=== PATIENT | female | born 1930 | race Caucasian/White ===

== ENCOUNTER 2017-06-19 18:10 | Inpatient (IN) | payer MEDICARE, BC ==
[~2017-06-19] VITALS: Ht 160 cm; Wt 34.9 kg
[~2017-06-19 18:10] MED LIST: ACET325T53 PO; ALBU1.257 NEB; AMIT10TA6 PO; ASPI81TA31 PO; BETA1TAB19 PO; DIGO125T PO; DILT300C57 PO; DOCU-270 PO; FLUO-120 PO; LATA2.5D2 EACHEYE; LORA-588 PO; MEGE20TA5 PO; PRED5SOL PO; SENN8.6C5 PO; [UNRECOGNIZED DRUG - CODE] PO
[2017-06-19] MEDS ORDERED: MIRT7.5T10 PO (18:42)
[2017-06-19] MEDS ORDERED: HYDR453.4 TP (18:42)
[2017-06-19] MEDS ORDERED: CHOL50004 PO (18:42)
[2017-06-19] MEDS ORDERED: DIPH-530 PO (18:42)
[2017-06-19] MEDS ORDERED: NYST15PO4 TP (18:42)
[2017-06-19] MEDS ORDERED: FURO-152 PO (18:45)
--- NOTE | 2017-06-19 18:50 | NUR ---
PIETER VALDEZ AT BEDSIDE FOR MSE.
[2017-06-19] MEDS ORDERED: IV NORMAL SALINE 500 ML BAG IV ONE (19:00)
[2017-06-19 19:28] LABS: BASOPHILS # (AUTO) 0.1 K/uL (0.0-8.0); BASOPHILS % (AUTO) 0.9 % (0.0-2.0); EOSINOPHILS # (AUTO) 0.1 K/uL (0.0-0.7); EOSINOPHILS % (AUTO) 0.9 % (0.0-7.0); HEMATOCRIT 42.1 % (31.2-41.9); HEMOGLOBIN 13.8 g/dL (10.9-14.3); LYMPHOCYTES # (AUTO) 0.8 K/uL (20.0-40.0); LYMPHOCYTES % (AUTO) 14.2 % (20.5-51.5); MEAN CORPUSCULAR HEMOGLOBIN 29.6 uug (24.7-32.8); MEAN CORPUSCULAR HGB CONC 33 g/dL (32.3-35.6); MEAN CORPUSCULAR VOLUME 90.3 fL (75.5-95.3); MONOCYTES # (AUTO) 0.4 K/uL (2.0-10.0); MONOCYTES % (AUTO) 7.5 % (0.0-11.0); NEUTROPHILS # (AUTO) 4.4 K/uL (1.8-8.9); NEUTROPHILS % (AUTO) 76.5 % (38.5-71.5); PLATELET COUNT (AUTO) 260 K/uL (179-408); RED BLOOD CELL COUNT(AUTO) 4.66 MIL/uL (3.63-4.92); WHITE BLOOD COUNT (AUTO) 5.8 K/uL (3.8-11.8)
[2017-06-19 19:34] LABS: CARBON DIOXIDE 32 mmol/L (21-32); CHLORIDE 101 mmol/L (98-107); CREATININE 0.8 mg/dL (0.6-1.3); GLUCOSE 89 mg/dL (74-106); POTASSIUM 4.3 mmol/L (3.5-5.1); UREA NITROGEN, BLOOD 14 mg/dL (7-18)
[2017-06-19 19:45] LABS: ALANINE AMINOTRANSFERASE 18 U/L (14-59); ALKALINE PHOSPHATASE 138 U/L (50-136); ASPARTATE AMINOTRANSFERASE 20 U/L (15-37); BILIRUBIN,DIRECT 0.1 mg/dL (0.0-0.2); BILIRUBIN,TOTAL 0.4 mg/dL (0.2-1.0); TOTAL PROTEIN, SERUM 7.6 g/dL (6.4-8.2)
--- NOTE | 2017-06-19 19:58 | NUR ---
Pt resting in a position of comfort w/ eyes closed. No signs of distress noted at this time.
--- NOTE | 2017-06-19 21:00 | NUR ---
Attempted to collect stool sample when changing patient, but sample was too small. Linens changed to provide comfort.
[2017-06-19] MEDS ORDERED: PIPERACILLIN SODIUM/TAZOBACTAM 3.375 G in IV DEXTROSE 5% 50 ML IV ONE (21:30)
[2017-06-19] MEDS ORDERED: PIPERACILLIN/TAZOBACTAM/D5W 50 ML IV ONE (21:50)
--- NOTE | 2017-06-19 22:14 | NUR ---
Pt appears aggitated. Pulling at chords for BP cuff/pulse ox/monitor and IV tubing. IV reinforced.
[2017-06-19 22:18] LABS: *BILIRUBIN,URIN NEGATIVE (NEGATIVE); *BLOOD, URINE Trace-intact (NEGATIVE); *CLARITY,URINE CLEAR (CLEAR); *COLOR,URINE STRAW (YELLOW); *KETONES,URINE NEGATIVE (NEGATIVE); *PROTEIN,URINE NEGATIVE (NEGATIVE); *UROBILINOGEN,URINE 0.2 E.U./dl (NORMAL); LEUKOCYTE ESTERASE ,URINE NEGATIVE (NEGATIVE); NITRITE, URINE NEGATIVE (NEGATIVE); UGLUCOSE NEGATIVE (NEGATIVE)
[2017-06-19 22:29] LABS: SQUAMOUS EPITHELIAL CELL,UR FEW /HPF (NONE SEEN); WBC,URINE 0-3 /HPF (0-3)
--- NOTE | 2017-06-19 23:02 | NUR ---
PT PULLED OUT IV IN RT AC. CATHETER INTACT. SCANT BLEEDING NOTED AT SITE. NOTIFIED
[2017-06-20] MEDS ORDERED: IV D5 1/2 NS 1000 ML 1,000 ML IV PRN (00:01)
--- NOTE | 2017-06-20 00:26 | NUR ---
REPORT GIVEN TO BEV LAMAS.
--- NOTE | 2017-06-20 00:50 | NUR ---
PT RECEIVED FROM ED, VIA [facility]. ORIENTED TO ROOM. A/OX1. ABLE TO MAKE NEEDS KNOWN. V/S STABLE. IN NO ACUTE DISTRESS. NO C/O PAIN AT THIS TIME. IV INTACT AND PATENT. ON RA, TOLERATING WELL. AFEBRILE. CONTACT PRECAUTIONS IN PLACE. HOB ELEVATED. SAFETY MEASURES IMPLEMENTED. BED ALARM SET. CALL LIGHT WITHIN REACH.
[2017-06-20 01:00] VITALS: BP 92/65
--- NOTE | 2017-06-20 01:00 | NUR ---
Pt. admitted to med surg, under care of Dr. Lane Belongs List completed
[2017-06-20] MEDS ORDERED: FLEET ENEMA 133 ML BOTTLE RC PRN (01:15)
[2017-06-20 05:23] VITALS: BP 115/66
[2017-06-20 05:35] LABS: BASOPHILS # (AUTO) 0.1 K/uL (0.0-8.0); BASOPHILS % (AUTO) 0.9 % (0.0-2.0); EOSINOPHILS # (AUTO) 0.1 K/uL (0.0-0.7); EOSINOPHILS % (AUTO) 1.8 % (0.0-7.0); HEMATOCRIT 41.5 % (31.2-41.9); HEMOGLOBIN 13.7 g/dL (10.9-14.3); LYMPHOCYTES # (AUTO) 1.2 K/uL (20.0-40.0); LYMPHOCYTES % (AUTO) 18.1 % (20.5-51.5); MEAN CORPUSCULAR HEMOGLOBIN 29.7 uug (24.7-32.8); MEAN CORPUSCULAR HGB CONC 33 g/dL (32.3-35.6); MEAN CORPUSCULAR VOLUME 90.3 fL (75.5-95.3); MONOCYTES # (AUTO) 0.6 K/uL (2.0-10.0); MONOCYTES % (AUTO) 9.8 % (0.0-11.0); NEUTROPHILS # (AUTO) 4.6 K/uL (1.8-8.9); NEUTROPHILS % (AUTO) 69.4 % (38.5-71.5); PLATELET COUNT (AUTO) 268 K/uL (179-408); RED BLOOD CELL COUNT(AUTO) 4.59 MIL/uL (3.63-4.92); WHITE BLOOD COUNT (AUTO) 6.6 K/uL (3.8-11.8)
[2017-06-20 05:45] LABS: CARBON DIOXIDE 29 mmol/L (21-32); CHLORIDE 104 mmol/L (98-107); CREATININE 0.9 mg/dL (0.6-1.3); GLUCOSE 92 mg/dL (74-106); POTASSIUM 3.8 mmol/L (3.5-5.1); UREA NITROGEN, BLOOD 10 mg/dL (7-18)
--- NOTE | 2017-06-20 06:20 | NUR ---
PT SLEPT INTERMITTENTLY THROUGHOUT SHIFT. ATTEMPTED MULTIPLE TIMES TO PULL IV. WRAPPED WITH VENUS BANDAGE FOR PREVENTION. IN STABLE CONDITION. ALL NEEDS ATTENDED. ISOLATION CONT TO BE IN PLACE. SAFETY MAINTAINED. CALL LIGHT WITHIN REACH.
[2017-06-20] MEDS ORDERED: HYDROCORTISONE 2.5% ONT. 28.35 GM TUBE TP PRN (07:30)
[2017-06-20] MEDS ORDERED: SENNOSIDES 1 TABLET PO PRN (07:30)
[2017-06-20] MEDS ORDERED: NYSTATIN POWDER 15 GM BOTTLE TP PRN (07:30)
[2017-06-20] MEDS ORDERED: predniSONE 5 MG/5 ML LIQ UDC PO PRN (07:30)
[2017-06-20] MEDS ORDERED: diphenhydrAMINE 25 MG/10 ML UDC PO PRN (07:30)
[2017-06-20] MEDS: FUROSEMIDE 20 MG TABLET PO SCH (08:52)
[2017-06-20] MEDS: BETA CAROTENE/VIT C & E/MIN TABLET PO SCH (08:52)
[2017-06-20] MEDS: ASPIRIN 81 MG TAB.CHEW PO SCH (08:52)
[2017-06-20] MEDS: DILTIAZEM HCL CD 300 MG CAP.SR.24H PO SCH (08:58)
[2017-06-20] MEDS: AMITRIPTYLINE HCL 10 MG TABLET PO SCH (09:00)
[2017-06-20] MEDS: DOCUSATE SODIUM 100 MG CAPSULE PO SCH ×2 (09:00→21:03)
[2017-06-20] MEDS ORDERED: LORATADINE 10 MG TABLET PO SCH (09:00)
[2017-06-20] MEDS ORDERED: CHOLECALCIFEROL 1,000 UNIT TABLET PO SCH (09:00)
--- NOTE | 2017-06-20 09:10 | NUR ---
PT REFUSED SOME OF THE MORNING MEDICATION. PT ENCOURAGED TO TAKE MEDICATION PRESCRIBE BY MD. PT SPIT OUT PILLS STATING, " LEAVE ME ALONE". CONTINUE TO MONITOR PT.
[2017-06-20] MEDS: predniSONE 5 MG TABLET PO SCH (09:15)
[2017-06-20 11:17] VITALS: BP 115/71
[2017-06-20] MEDS: DIGOXIN 125 MCG TABLET PO SCH (12:28)
[2017-06-20] MEDS ORDERED: MAGNESIUM CITRATE 296 ML BOTTLE PO ONE (13:45)
[2017-06-20] MEDS ORDERED: BISACODYL 10 MG SUPP.RECT RC PRN (13:45)
[2017-06-20 15:05] VITALS: BP 116/64
--- NOTE | 2017-06-20 18:11 | NUR ---
PT IN BED RESTING, CONFUSED, AOX1, PT PULLED OUT IV, PT EATING MEALS, NOT COOPERATIVE WITH CARE. PT HAD A BM, SOFT, MEDIUM SIZE TODAY. CONTINUE TO MONITOR PT.BED AT LOWEST LOCKED POSITION.
--- NOTE | 2017-06-20 19:25 | NUR ---
PT RECEIVED IN BED, AWAKE. SPEAKS MONGOLIAN, ABLE TO MAKE NEEDS KNOWN. A/OX1. V/S STABLE. IN NO ACUTE DISTRESS. NO C/O PAIN AT THIS TIME. NO IV IN PLACE. ON RA TOLERATING WELL. AFEBRILE. HOB ELEVATED. SAFETY MEASURES IMPLEMENTED. BED ALARM SET. CALL LIGHT WITHIN REACH.
[2017-06-20 20:33] VITALS: BP 119/52
[2017-06-20] MEDS ORDERED: MIRTAZAPINE 15 MG TABLET PO SCH (21:00)
[2017-06-20] MEDS ORDERED: LATANOPROST OPHT DROP 2.5 ML BOTTLE EACHEYE SCH (21:00)
[2017-06-21 04:00] VITALS: BP 116/64
--- NOTE | 2017-06-21 06:30 | NUR ---
END OF SHIFT NOTES. PT SLEPT WELL THROUGHOUT SHIFT. IN STABLE CONDITION. ON RA, TOLERATING WELL. AFEBRILE. NO IV IN PLACE, AWARE. COMPLIANT WITH CARE. ALL NEEDS ATTENDED. HOB ELEVATED. SAFETY MAINTAINED. CALL LIGHT WITHIN REACH.
[2017-06-21] MEDS: BETA CAROTENE/VIT C & E/MIN TABLET PO SCH (08:12)
[2017-06-21] MEDS: ASPIRIN 81 MG TAB.CHEW PO SCH (08:12)
[2017-06-21] MEDS: AMITRIPTYLINE HCL 10 MG TABLET PO SCH (08:12)
[2017-06-21] MEDS: predniSONE 5 MG TABLET PO SCH (08:12)
[2017-06-21] MEDS: FUROSEMIDE 20 MG TABLET PO SCH (08:12)
[2017-06-21] MEDS: DILTIAZEM HCL CD 300 MG CAP.SR.24H PO SCH (08:14)
[2017-06-21] MEDS: DOCUSATE SODIUM 100 MG CAPSULE PO SCH (08:42)
[2017-06-21 11:26] VITALS: BP 100/46
[2017-06-21] MEDS: DIGOXIN 125 MCG TABLET PO SCH (12:33)
--- NOTE | 2017-06-21 14:30 | NUR ---
PT IS DISCHARGING TO [facility]. PT TRANSPORTED VIA AMBULANCE. PT D/C WITH ALL BELONGINGS, VALUABLES, AND EXIT CARE PACKET. PICTURES WERE TAKEN OF SCRATCH ON RIGHT BUTTOCK AND PLACED IN CHART. PT IS STABLE, CALM, COOPERATIVE, AND AOX1.
[2017-06-21 14:56] VITALS: BP 100/69
== END 2017-06-21 14:30 | DRG 394 ==
LOC: ER 18:10 → MED 22:35
PROVIDERS: ADMIT Internal Medicine; ATTEND Internal Medicine Nephrology
DX: K62.89 Other specified diseases of anus and rectum (principal); J84.9 Interstitial pulmonary disease, unspecified; Z66 Do not resuscitate; T17.890A Other foreign object in other parts of respiratory tract causing asphyxiation, initial encounter; I11.0 Hypertensive heart disease with heart failure; I50.9 Heart failure, unspecified; N13.30 Unspecified hydronephrosis; K56.41 Fecal impaction; G30.9 Alzheimer's disease, unspecified; F02.80 Dementia in other diseases classified elsewhere, unspecified severity, without behavioral disturbance, psychotic disturbance, mood disturbance, and anxiety; M43.16 Spondylolisthesis, lumbar region; Z79.82 Long term (current) use of aspirin; Z79.52 Long term (current) use of systemic steroids; M06.9 Rheumatoid arthritis, unspecified; J47.9 Bronchiectasis, uncomplicated; I25.10 Atherosclerotic heart disease of native coronary artery without angina pectoris; I49.3 Ventricular premature depolarization; Z96.642 Presence of left artificial hip joint; M46.90 Unspecified inflammatory spondylopathy, site unspecified; X58.XXXA Exposure to other specified factors, initial encounter; Y92.099 Unspecified place in other non-institutional residence as the place of occurrence of the external cause
CPT/HCPCS: 36415; 70030-TC; 71045; 83605; 84443; 85025; 85730; 87040; 87086; 93005; A4663; J2543; J3490; J7040; J7512

== ENCOUNTER 2017-07-20 16:30 | Inpatient (IN) | payer MEDICARE, BC ==
[~2017-07-20] VITALS: Ht 139.7 cm; Wt 30.4 kg
[~2017-07-20 16:30] MED LIST changes: -ACET325T53 PO; -ALBU1.257 NEB; +CHOL50004 PO; +DIPH-530 PO; -FLUO-120 PO; +FURO-152 PO; +HYDR453.4 TP; -MEGE20TA5 PO; +MIRT7.5T10 PO; +NYST15PO4 TP; -[UNRECOGNIZED DRUG - CODE] PO
[2017-07-20 17:22] LABS: BASOPHILS # (AUTO) 0.1 K/uL (0.0-8.0); BASOPHILS % (AUTO) 0.3 % (0.0-2.0); EOSINOPHILS % (AUTO) 0.1 % (0.0-7.0); HEMATOCRIT 35.4 % (31.2-41.9); HEMOGLOBIN 11.4 g/dL (10.9-14.3); LYMPHOCYTES # (AUTO) 0.4 K/uL (20.0-40.0); LYMPHOCYTES % (AUTO) 1.4 % (20.5-51.5); MEAN CORPUSCULAR HEMOGLOBIN 29.5 uug (24.7-32.8); MEAN CORPUSCULAR HGB CONC 32 g/dL (32.3-35.6); MEAN CORPUSCULAR VOLUME 91.4 fL (75.5-95.3); MONOCYTES # (AUTO) 0.9 K/uL (2.0-10.0); NEUTROPHILS # (AUTO) 26.8 K/uL (1.8-8.9); NEUTROPHILS % (AUTO) 95.2 % (38.5-71.5); PLATELET COUNT (AUTO) 472 K/uL (179-408); RED BLOOD CELL COUNT(AUTO) 3.87 MIL/uL (3.63-4.92); WHITE BLOOD COUNT (AUTO) 28.2 K/uL (3.8-11.8)
[2017-07-20 17:31] LABS: CARBON DIOXIDE 34 mmol/L (21-32); CHLORIDE 111 mmol/L (98-107); GLUCOSE 131 mg/dL (74-106); POTASSIUM 3.8 mmol/L (3.5-5.1); UREA NITROGEN, BLOOD 58 mg/dL (7-18)
[2017-07-20 17:44] LABS: ALANINE AMINOTRANSFERASE 15 U/L (14-59); ALKALINE PHOSPHATASE 111 U/L (50-136); ASPARTATE AMINOTRANSFERASE 12 U/L (15-37); BILIRUBIN,DIRECT 0.4 mg/dL (0.0-0.2); BILIRUBIN,TOTAL 0.7 mg/dL (0.2-1.0); TOTAL PROTEIN, SERUM 7.6 g/dL (6.4-8.2)
[2017-07-20] MEDS ORDERED: methylPREDNISolone SOD SUCC 125 MG/2 ML VIAL IV ONE (18:15)
[2017-07-20] MEDS ORDERED: VANCOMYCIN IV 1,000 MG in IV DEXTROSE 5% 250 ML IV ONE (18:15)
[2017-07-20] MEDS ORDERED: PIPERACILLIN SODIUM/TAZOBACTAM 3.375 G in IV DEXTROSE 5% 50 ML IV ONE (18:15)
[2017-07-20] MEDS ORDERED: methylPREDNISolone SOD SUCC 125 MG/2 ML VIAL ONE (18:23)
[2017-07-20] MEDS ORDERED: VANCOMYCIN IV 200 ML ONE (18:23)
[2017-07-20] MEDS ORDERED: PIPERACILLIN/TAZOBACTAM/D5W 50 ML IV ONE (18:23)
[2017-07-20] MEDS ORDERED: FUROSEMIDE 20 MG/2 ML VIAL IV ONE (18:30)
[2017-07-20] MEDS ORDERED: IV NORMAL SALINE 1000 ML BAG IV ONE (18:30)
[2017-07-20] MEDS ORDERED: FUROSEMIDE 40 MG/4 ML VIAL ONE (18:46)
--- NOTE | 2017-07-20 19:16 | NUR ---
REPORT TAKEN FROM ADAMS MATTHEWS. ASSUMING PT CARE AT THIS TIME.
[2017-07-20 19:52] LABS: *BILIRUBIN,URIN NEGATIVE (NEGATIVE); *BLOOD, URINE 2+ (NEGATIVE); *CLARITY,URINE SLIGHTLY CLOUDY (CLEAR); *COLOR,URINE YELLOW (YELLOW); *KETONES,URINE NEGATIVE (NEGATIVE); *PROTEIN,URINE 2+ (NEGATIVE); LEUKOCYTE ESTERASE ,URINE 1+ (NEGATIVE); NITRITE, URINE NEGATIVE (NEGATIVE); UGLUCOSE NEGATIVE (NEGATIVE)
--- NOTE | 2017-07-20 19:57 | NUR ---
CALLED TO GIVE REPORT. WAS TOLD NURSE WILL CALL BACK.
[2017-07-20 20:06] LABS: BACTERIA,URINE FEW /HPF (NONE SEEN); SQUAMOUS EPITHELIAL CELL,UR FEW /HPF (NONE SEEN); YEAST,URINE FEW /HPF (NONE SEEN)
--- NOTE | 2017-07-20 20:08 | NUR ---
REPORT GIVEN TO ADAMS STRAUSS.
[2017-07-20 20:55] VITALS: BP 115/70
--- NOTE | 2017-07-20 21:30 | NUR ---
Received pt to Tele floor, in stable condition, no skin issues. Pt on at 4LPM via NC. Pt keeps pulling off her NC. Changed diaper and clothes and elevated HOB for comfort. Bed locked and in low position with bed alarm on, call light within reach. Will call PMD for admission orders.
[2017-07-21] MEDS ORDERED: CEFTRIAXONE 1 G in IV DEXTROSE 5% 50 ML IV SCH ×2
[2017-07-21 00:58] VITALS: BP 122/65
[2017-07-21] MEDS ORDERED: CEFTRIAXONE 1 G VIAL ONE (01:00)
[2017-07-21 04:47] VITALS: BP 103/85
[2017-07-21 06:47] LABS: BASOPHILS # (AUTO) 0.1 K/uL (0.0-8.0); BASOPHILS % (AUTO) 0.3 % (0.0-2.0); EOSINOPHILS # (AUTO) 0.1 K/uL (0.0-0.7); EOSINOPHILS % (AUTO) 0.5 % (0.0-7.0); HEMATOCRIT 39.7 % (31.2-41.9); HEMOGLOBIN 12.6 g/dL (10.9-14.3); LYMPHOCYTES # (AUTO) 0.3 K/uL (20.0-40.0); LYMPHOCYTES % (AUTO) 1.1 % (20.5-51.5); MEAN CORPUSCULAR HEMOGLOBIN 29.5 uug (24.7-32.8); MEAN CORPUSCULAR HGB CONC 32 g/dL (32.3-35.6); MEAN CORPUSCULAR VOLUME 92.9 fL (75.5-95.3); MONOCYTES # (AUTO) 0.4 K/uL (2.0-10.0); MONOCYTES % (AUTO) 1.4 % (0.0-11.0); NEUTROPHILS # (AUTO) 26.1 K/uL (1.8-8.9); NEUTROPHILS % (AUTO) 96.7 % (38.5-71.5); PLATELET COUNT (AUTO) 469 K/uL (179-408); RED BLOOD CELL COUNT(AUTO) 4.28 MIL/uL (3.63-4.92)
[2017-07-21 07:07] LABS: CARBON DIOXIDE 30 mmol/L (21-32); CHLORIDE 112 mmol/L (98-107); GLUCOSE 204 mg/dL (74-106); POTASSIUM 3.5 mmol/L (3.5-5.1); UREA NITROGEN, BLOOD 61 mg/dL (7-18)
--- NOTE | 2017-07-21 07:30 | NUR ---
Received patient sleeping in bed, in no distress, easily arousable. Safety measures in place, bed alarm on.
[2017-07-21] MEDS ORDERED: predniSONE 5 MG/5 ML LIQ UDC PO PRN (08:00)
[2017-07-21] MEDS ORDERED: diphenhydrAMINE 25 MG/10 ML UDC PO PRN (08:00)
[2017-07-21] MEDS ORDERED: NYSTATIN POWDER 15 GM BOTTLE TP PRN (08:00)
[2017-07-21] MEDS ORDERED: HYDROCORTISONE 2.5% ONT. 28.35 GM TUBE TP PRN (08:00)
--- NOTE | 2017-07-21 08:00 | NUR ---
Patient is on tele monitor multifocal atrial controlled ventricular rate. Patient resting in bed, refuses to eat/drink, offered multiple times but patient closes her mouth and pushes food/drink away with her left hand. Will attempt at a different time.
[2017-07-21] MEDS ORDERED: POTASSIUM CHLORIDE 10 MEQ in IV D5 1/2 NS 1000 ML 1,000 ML IV PRN (08:45)
[2017-07-21] MEDS ORDERED: LORATADINE 10 MG TABLET PO SCH (09:00)
[2017-07-21] MEDS ORDERED: FUROSEMIDE 20 MG TABLET PO SCH (09:00)
[2017-07-21] MEDS ORDERED: CHOLECALCIFEROL 1,000 UNIT TABLET PO SCH (09:00)
--- NOTE | 2017-07-21 09:10 | NUR ---
Patient extended left arm to allow vital signs to be taken. Patient is aware but has her eyes closed. Patient still refused to drink/eat or take anything by mouth.
[2017-07-21] MEDS: BETA CAROTENE/VIT C & E/MIN TABLET PO SCH (09:14)
[2017-07-21] MEDS: DILTIAZEM HCL CD 300 MG CAP.SR.24H PO SCH (09:15)
[2017-07-21] MEDS: ASPIRIN 81 MG TAB.CHEW PO SCH (09:15)
[2017-07-21] MEDS: SENNOSIDES 1 TABLET PO SCH ×2 (09:15→17:00)
[2017-07-21] MEDS: DOCUSATE SODIUM 100 MG CAPSULE PO SCH ×2 (09:15→21:00)
--- NOTE | 2017-07-21 09:30 | NUR ---
Notified Dr. Lane regarding discrepancy on patient's POLST.
--- NOTE | 2017-07-21 09:35 | NUR ---
Patient's son Ashish called. Notified regarding discrepancy on POLST. Son agrees patient to be in the hospital.
[2017-07-21 11:33] VITALS: BP 99/51
[2017-07-21] MEDS ORDERED: CHOL500062 PO (11:51)
[2017-07-21] MEDS: AMITRIPTYLINE HCL 10 MG TABLET PO SCH (12:19)
[2017-07-21] MEDS: predniSONE 2.5 MG TABLET PO SCH (12:19)
[2017-07-21] MEDS: DIGOXIN 125 MCG TABLET PO SCH (12:20)
[2017-07-21] MEDS ORDERED: HYDR28.34 TP (12:43)
[2017-07-21] MEDS ORDERED: HYDROCORTISONE 1% OINT 28.35 GM TUBE TOP PRN (12:45)
[2017-07-21] MEDS ORDERED: CEFEPIME HCL 1 G in IV DEXTROSE 5% 50 ML IV SCH (14:00)
--- NOTE | 2017-07-21 15:26 | NUR ---
CLINICAL PHARMACY NOTE: VANCOMYCIN DOSING Request for vancomycin dosing on 86 y/o female 4'7" 65 lbs for pneumonia Temp 99.2 BUN 61 Scr 2.0 WBC 27 also on cefepime Give vancomycin 500mg ivpb x1 will dose by level due to decreased renal function. Random vancomycin level ordered for tomorrow afternoon. Will continue to monitor.
[2017-07-21 15:30] VITALS: BP 121/70
[2017-07-21] MEDS: CEFEPIME HCL IV SCH (15:40)
[2017-07-21] MEDS: NORMAL SALINE IV SCH (15:40)
--- NOTE | 2017-07-21 15:40 | NUR ---
Son at bedside, aware of patient's poor intake, refusing food/fluid/medication. MD aware.
[2017-07-21] MEDS ORDERED: VANCOMYCIN IV 500 MG in IV NORMAL SALINE 100 ML IV ONE (17:00)
--- NOTE | 2017-07-21 19:45 | NUR ---
Received patient laying in bed, sleeping and on room air. Vital signs are taken and recorded. No acute signs of any respi. distress. Patient still refused to take water/ any food intake. Persistent assessment done. mari monitor the patient.
[2017-07-21 20:43] VITALS: BP 109/58
[2017-07-21] MEDS: MIRTAZAPINE 15 MG TABLET PO SCH (21:00)
[2017-07-21] MEDS: LATANOPROST OPHT DROP 2.5 ML BOTTLE EACHEYE SCH (21:00)
[2017-07-22 05:36] VITALS: BP 121/64
--- NOTE | 2017-07-22 06:46 | NUR ---
Patient slept throughout the shift. Still refused for meds., food and even water. Offered a lot of times but patient still refused. Vital signs taken and recorded. Diaper changed per soiling. All needs attended to. Kept clean, dry and comfortable. Will endorse to AM shift nurse.
[2017-07-22 06:56] LABS: BASOPHILS % (AUTO) 0.1 % (0.0-2.0); HEMOGLOBIN 11.1 g/dL (10.9-14.3); LYMPHOCYTES # (AUTO) 0.3 K/uL (20.0-40.0); LYMPHOCYTES % (AUTO) 1.4 % (20.5-51.5); MEAN CORPUSCULAR HEMOGLOBIN 29.4 uug (24.7-32.8); MEAN CORPUSCULAR HGB CONC 32 g/dL (32.3-35.6); MEAN CORPUSCULAR VOLUME 92.6 fL (75.5-95.3); MONOCYTES # (AUTO) 0.7 K/uL (2.0-10.0); MONOCYTES % (AUTO) 3.1 % (0.0-11.0); NEUTROPHILS # (AUTO) 20.3 K/uL (1.8-8.9); NEUTROPHILS % (AUTO) 95.4 % (38.5-71.5); PLATELET COUNT (AUTO) 357 K/uL (179-408); RED BLOOD CELL COUNT(AUTO) 3.79 MIL/uL (3.63-4.92); WHITE BLOOD COUNT (AUTO) 21.3 K/uL (3.8-11.8)
--- NOTE | 2017-07-22 07:00 | NUR ---
RECEIVED PATIENT ON BED ASLEEP, NON ALERT AND ORIENTED, NO ACUTE DISTRESS NOTED. WITH IV ACCESS ON THE LEFT WRIST #20, IVF INFUSING WELL. PATIENT STILL REFUSING PO INTAKE AND MEDS. NO COMPLAINTS OF PAIN AND DISCOMFORT, COMFORT MEASURES PROVIDED. WILL CONTINUE TO MONITOR CLOSELY
[2017-07-22 07:07] LABS: HEMATOCRIT 35.1 % (31.2-41.9)
[2017-07-22 07:18] LABS: ALANINE AMINOTRANSFERASE 15 U/L (14-59); ALKALINE PHOSPHATASE 120 U/L (50-136); ASPARTATE AMINOTRANSFERASE 14 U/L (15-37); BILIRUBIN,TOTAL 0.4 mg/dL (0.2-1.0); CARBON DIOXIDE 33 mmol/L (21-32); CHLORIDE 115 mmol/L (98-107); CREATININE 1.8 mg/dL (0.6-1.3); GLUCOSE 227 mg/dL (74-106); MAGNESIUM 2.5 mg/dL (1.8-2.4); PHOSPHOROUS 4.2 mg/dL (2.5-4.9); POTASSIUM 3.2 mmol/L (3.5-5.1); TOTAL PROTEIN, SERUM 6.5 g/dL (6.4-8.2)
[2017-07-22 07:21] LABS: UREA NITROGEN, BLOOD 80 mg/dL (7-18)
[2017-07-22 08:00] LABS: BAND % (MANUAL) 5 % (0-10); LYMPHOCYTES % (MANUAL) 1 % (20-40); MONOCYTES % (MANUAL) 3 % (2-10); NEUTROPHILS % (MANUAL) 91 % (42-75)
--- NOTE | 2017-07-22 08:10 | NUR ---
TRIED TO ADMINISTER AM MEDS, CRUSHED WITH APPLE SAUCE, BUT PT CONTINUES TO REFUSE PO INTAKE. TRIED SEVERAL TIMES. PT IN STABLE CONDITION WILL CONTINUE TO MONITOR.
[2017-07-22] MEDS ORDERED: IV D5W 1000ML 1,000 ML IV ONE (08:30)
[2017-07-22] MEDS ORDERED: LORATADINE 10 MG TABLET PO SCH (09:00)
[2017-07-22] MEDS: DOCUSATE SODIUM 100 MG CAPSULE PO SCH ×2 (09:19→21:00)
[2017-07-22] MEDS: ASPIRIN 81 MG TAB.CHEW PO SCH (09:19)
[2017-07-22] MEDS: SENNOSIDES 1 TABLET PO SCH ×2 (09:19→17:00)
[2017-07-22] MEDS: BETA CAROTENE/VIT C & E/MIN TABLET PO SCH (09:19)
[2017-07-22] MEDS: AMITRIPTYLINE HCL 10 MG TABLET PO SCH (09:19)
[2017-07-22] MEDS: predniSONE 2.5 MG TABLET PO SCH (09:19)
[2017-07-22] MEDS: DILTIAZEM HCL CD 300 MG CAP.SR.24H PO SCH (09:28)
[2017-07-22 11:18] VITALS: BP 136/72
[2017-07-22] MEDS: DIGOXIN 125 MCG TABLET PO SCH (13:00)
--- NOTE | 2017-07-22 13:12 | NUR ---
Patient refused to take [id number] mcg, tried several times to administer it crushed with apple sauce, but patient closes mouth and covers mouth with hand. heart rate is 73, will continue to monitor.
[2017-07-22 15:15] VITALS: BP 125/70
[2017-07-22] MEDS ORDERED: POTASSIUM CHLORIDE 10 MEQ TAB.PRT.SR PO ONE (15:15)
[2017-07-22] MEDS: CEFEPIME HCL IV SCH (15:55)
[2017-07-22] MEDS: POTASSIUM CHLORIDE 10 MEQ in IV NORMAL SALINE 50 ML IV SCH ×4 (15:55→19:48)
[2017-07-22] MEDS: NORMAL SALINE IV SCH (15:55)
--- NOTE | 2017-07-22 15:59 | NUR ---
CLINICAL PHARMACY NOTE: VANCOMYCIN DOSING Request for vancomycin dosing on 86 y/o female 4'7" 65 lbs for pneumonia Temp 98.9 BUN 80 Scr 1.8 WBC 21.3 also on cefepime Vancomycin 500mg IV x1 was given yesterday at 1718. Random vancomycin level ordered for today at 1630. Will continue to monitor. Addendum: 07/22/17 at 1738 by DAISY MCMAHON VANCOMYCIN RANDOM WAS 15.5. WILL GIVE 500MG X1 THEN RANDOM TOMORROW AT 1600
--- NOTE | 2017-07-22 16:16 | NUR ---
seen and examined by Dr. Street, with orders for CXR noted and carried out. Will continue to monitor.
--- NOTE | 2017-07-22 19:45 | NUR ---
Received pt lying with HOB elevated, asleep with no signs/symptoms of distress noted. No facial grimacing or any signs of pain noted. No SOB. Vital signs stable. Kept clean, dry and comfortable. Safety and fall precautions observed and maintained. Call light placed within reach. All needs attended.
[2017-07-22] MEDS ORDERED: VANCOMYCIN IV 500 MG in IV NORMAL SALINE 100 ML IV ONE (20:00)
[2017-07-22 20:34] VITALS: BP 120/92
[2017-07-22] MEDS: FLUCONAZOLE 200 MG/NS 100ML IV 100 MG in PREMIXED 1 EACH IV SCH (20:58)
[2017-07-22] MEDS: LACTOBACILLUS RHAMNOSUS GG 1 EACH CAPSULE PO SCH (21:00)
[2017-07-22] MEDS: LATANOPROST OPHT DROP 2.5 ML BOTTLE EACHEYE SCH (21:00)
[2017-07-22] MEDS: MIRTAZAPINE 15 MG TABLET PO SCH (21:00)
--- NOTE | 2017-07-22 21:14 | NUR ---
Patient refused to take medications. Explained risks and benefits but still pt refuses. No acute distress noted. No complaints of pain or discomfort. Will continue to monitor. Addendum: 07/22/17 at 2220 by LUCRETIA BARRIOS RN Vancomycin IV medication given late due to multiple IV meds running.
--- NOTE | 2017-07-23 05:34 | NUR ---
PATIENT SLEPT WELL THROUGHOUT THE SHIFT. NO ACUTE DISTRESS NOTED. NO FACIAL GRIMACING NOTED. BREATHING EVEN AND UNLABORED WITH NORMAL RESPIRATIONS. PT STILL REFUSES ORAL INTAKE, OFFERED FLUIDS BUT STILL PT REFUSED. INCONTINENT CARE RENDERED. CALL LIGHT WITHIN REACH. ALL NEEDS ANTICIPATED.
[2017-07-23 06:27] VITALS: BP 136/75
[2017-07-23 06:48] LABS: ALANINE AMINOTRANSFERASE 19 U/L (14-59); ALKALINE PHOSPHATASE 84 U/L (50-136); ASPARTATE AMINOTRANSFERASE 22 U/L (15-37); BILIRUBIN,TOTAL 0.4 mg/dL (0.2-1.0); CARBON DIOXIDE 33 mmol/L (21-32); CHLORIDE 117 mmol/L (98-107); CREATININE 1.2 mg/dL (0.6-1.3); GLUCOSE 125 mg/dL (74-106); MAGNESIUM 2.5 mg/dL (1.8-2.4); PHOSPHOROUS 3.1 mg/dL (2.5-4.9); POTASSIUM 3.7 mmol/L (3.5-5.1); TOTAL PROTEIN, SERUM 6.1 g/dL (6.4-8.2); UREA NITROGEN, BLOOD 58 mg/dL (7-18)
[2017-07-23 07:02] LABS: BASOPHILS % (AUTO) 0.2 % (0.0-2.0); HEMATOCRIT 34.3 % (31.2-41.9); HEMOGLOBIN 10.8 g/dL (10.9-14.3); LYMPHOCYTES # (AUTO) 0.4 K/uL (20.0-40.0); LYMPHOCYTES % (AUTO) 2.7 % (20.5-51.5); MEAN CORPUSCULAR HEMOGLOBIN 29.1 uug (24.7-32.8); MEAN CORPUSCULAR HGB CONC 32 g/dL (32.3-35.6); MEAN CORPUSCULAR VOLUME 92.1 fL (75.5-95.3); MONOCYTES # (AUTO) 0.6 K/uL (2.0-10.0); NEUTROPHILS # (AUTO) 11.9 K/uL (1.8-8.9); NEUTROPHILS % (AUTO) 92.1 % (38.5-71.5); PLATELET COUNT (AUTO) 339 K/uL (179-408); RED BLOOD CELL COUNT(AUTO) 3.73 MIL/uL (3.63-4.92)
[2017-07-23 07:20] LABS: WHITE BLOOD COUNT (AUTO) 12.9 K/uL (3.8-11.8)
[2017-07-23] MEDS ORDERED: IV 1/2NS 1000 ML 1,000 ML IV PRN (08:45)
[2017-07-23] MEDS: DOCUSATE SODIUM 100 MG CAPSULE PO SCH ×2 (09:00→20:42)
[2017-07-23] MEDS: ASPIRIN 81 MG TAB.CHEW PO SCH (09:00)
[2017-07-23] MEDS: LACTOBACILLUS RHAMNOSUS GG 1 EACH CAPSULE PO SCH ×2 (09:00→20:42)
[2017-07-23] MEDS: BETA CAROTENE/VIT C & E/MIN TABLET PO SCH (09:00)
[2017-07-23] MEDS: DILTIAZEM HCL CD 300 MG CAP.SR.24H PO SCH (09:00)
[2017-07-23] MEDS: predniSONE 2.5 MG TABLET PO SCH (09:00)
[2017-07-23] MEDS: AMITRIPTYLINE HCL 10 MG TABLET PO SCH (09:00)
[2017-07-23] MEDS: SENNOSIDES 1 TABLET PO SCH ×2 (09:00→17:00)
--- NOTE | 2017-07-23 10:51 | NUR ---
CLINICAL PHARMACY NOTE: VANCOMYCIN DOSING S: To continue vancomycin dosing on 86 y/o female 4'7" 65 lbs for pneumonia O: Temp 98.3 BUN 58 Scr 1.2 WBC 12.9 Vanco random level: pending (due at 1600) Plan: Due to unstable srcr, will continue to dose by random level. Random vancomycin level ordered for today at 1600. Will review the level when available & dose if needed. Will continue to monitor. Addendum: 07/23/17 at 1719 by JOSEFINA MCMAHON VANCO RANDOM LEVEL AT 1600= 16.7 WILL GIVE VANCO 500MG IVPB X1 AT 1999 & RE-CHECK VANCO RANDOM TOMORROW AT 1600
[2017-07-23 11:32] VITALS: BP 129/73
[2017-07-23] MEDS: DIGOXIN 125 MCG TABLET PO SCH (13:00)
[2017-07-23 15:38] VITALS: BP 135/74
[2017-07-23] MEDS: CEFEPIME HCL IV SCH (15:49)
[2017-07-23] MEDS: NORMAL SALINE IV SCH (15:49)
--- NOTE | 2017-07-23 18:14 | NUR ---
PT OBSERVED RESTING IN BED. PT REFUSING FOOD AND MEDICATION. PT ENCOURAGED TO EAT BY STAFF. PT CONTINUES TO REFUSE. PT SHOWS NO SIGNS OF RESPIRATORY DISTRESS, VITALS STABLE, AOX1, PT REPOSITIONED EVERY TWO HOURS. CONTINUE TO MONITOR.
[2017-07-23] MEDS: FLUCONAZOLE 200 MG/NS 100ML IV 100 MG in PREMIXED 1 EACH IV SCH (19:58)
[2017-07-23 20:00] VITALS: BP 139/78
[2017-07-23] MEDS ORDERED: VANCOMYCIN IV 500 MG in IV DEXTROSE 5% 100 ML IV ONE (20:00)
--- NOTE | 2017-07-23 20:00 | NUR ---
RECEIVED PATIENT AWAKE IN BED, PATIENT IS CONFUSED & SHE MUMBLES INCOHERENTLY. NO S/S OF PAIN OR RESP DISTRESS, V/S ARE STABLE. SAFETY AND COMFORT MEASURES IN PLACE, CALL LIGHT PLACED WITHIN PATIENT'S REACH
[2017-07-23] MEDS: LATANOPROST OPHT DROP 2.5 ML BOTTLE EACHEYE SCH (20:41)
[2017-07-23] MEDS: MIRTAZAPINE 15 MG TABLET PO SCH (20:42)
[2017-07-24 04:32] VITALS: BP 136/64
[2017-07-24 06:35] LABS: ALANINE AMINOTRANSFERASE 15 U/L (14-59); ALKALINE PHOSPHATASE 90 U/L (50-136); ASPARTATE AMINOTRANSFERASE 18 U/L (15-37); BILIRUBIN,TOTAL 0.6 mg/dL (0.2-1.0); CARBON DIOXIDE 32 mmol/L (21-32); CHLORIDE 115 mmol/L (98-107); CREATININE 0.9 mg/dL (0.6-1.3); GLUCOSE 83 mg/dL (74-106); MAGNESIUM 2.2 mg/dL (1.8-2.4); PHOSPHOROUS 4.3 mg/dL (2.5-4.9); POTASSIUM 3.3 mmol/L (3.5-5.1); TOTAL PROTEIN, SERUM 6.1 g/dL (6.4-8.2); UREA NITROGEN, BLOOD 36 mg/dL (7-18)
[2017-07-24 06:37] LABS: BASOPHILS % (AUTO) 0.2 % (0.0-2.0); EOSINOPHILS # (AUTO) 0.1 K/uL (0.0-0.7); EOSINOPHILS % (AUTO) 0.7 % (0.0-7.0); HEMATOCRIT 33.3 % (31.2-41.9); HEMOGLOBIN 10.8 g/dL (10.9-14.3); LYMPHOCYTES # (AUTO) 0.6 K/uL (20.0-40.0); MEAN CORPUSCULAR HEMOGLOBIN 29.8 uug (24.7-32.8); MEAN CORPUSCULAR HGB CONC 33 g/dL (32.3-35.6); MEAN CORPUSCULAR VOLUME 91.7 fL (75.5-95.3); MONOCYTES # (AUTO) 0.5 K/uL (2.0-10.0); MONOCYTES % (AUTO) 4.3 % (0.0-11.0); NEUTROPHILS % (AUTO) 89.8 % (38.5-71.5); PLATELET COUNT (AUTO) 339 K/uL (179-408); RED BLOOD CELL COUNT(AUTO) 3.63 MIL/uL (3.63-4.92); WHITE BLOOD COUNT (AUTO) 11.1 K/uL (3.8-11.8)
--- NOTE | 2017-07-24 06:43 | NUR ---
PATIENT SLEPT ON AND OFF THROUGH THE SHIFT. SHE REFUSED ALL HER PO MEDS. NO S/S OF PAIN OR RESP DISTRESS ON THE SHIFT. V/S STABLE, NO FEVER. SAFETY AND COMFORT MEASURES MAINTAINED AT ALL TIMES
--- NOTE | 2017-07-24 07:05 | NUR ---
Received client in bed sleeping but easily arousable, client was trying to remove IV. No apparent s/s of SOB, pain, distress or discomfort. Room air. Heplock. DVT pumps in place. Client is non-verbal as of right now. Bed at lowest position for safety and call light within reach for assistance
[2017-07-24] MEDS ORDERED: CEFE1FRO IV (08:39)
[2017-07-24] MEDS ORDERED: RXVAN XX (08:39)
[2017-07-24] MEDS ORDERED: LACT1CAP57 PO (08:39)
[2017-07-24] MEDS ORDERED: VANC500F IV (08:39)
[2017-07-24] MEDS: AMITRIPTYLINE HCL 10 MG TABLET PO SCH (08:53)
[2017-07-24] MEDS: DOCUSATE SODIUM 100 MG CAPSULE PO SCH (08:58)
[2017-07-24] MEDS: ASPIRIN 81 MG TAB.CHEW PO SCH (08:58)
[2017-07-24] MEDS: DILTIAZEM HCL CD 300 MG CAP.SR.24H PO SCH (08:58)
[2017-07-24] MEDS: LACTOBACILLUS RHAMNOSUS GG 1 EACH CAPSULE PO SCH (08:59)
[2017-07-24] MEDS: SENNOSIDES 1 TABLET PO SCH (08:59)
[2017-07-24] MEDS: BETA CAROTENE/VIT C & E/MIN TABLET PO SCH (08:59)
[2017-07-24] MEDS: predniSONE 2.5 MG TABLET PO SCH (08:59)
[2017-07-24] MEDS ORDERED: HOME MED MISCELLANEOUS XX SCH (09:00)
--- NOTE | 2017-07-24 09:09 | NUR ---
Patient is refusing medication, gave amitriptyline crushed with some tea. Client drank some but spit some out as well. Client is physical blocking her mouth with her hand.
[2017-07-24 11:40] VITALS: BP 136/68
[2017-07-24] MEDS: DIGOXIN 125 MCG TABLET PO SCH (13:00)
--- NOTE | 2017-07-24 13:45 | NUR ---
Client refused medication, HR was 103
--- NOTE | 2017-07-24 15:31 | NUR ---
CLINICAL PHARMACY NOTE: VANCOMYCIN DOSING S: To continue vancomycin dosing on 86 y/o female 4'7" 65 lbs for pneumonia O: Temp 97.7 BUN 36 Scr 0.9 WBC 11.1 Vanco random level: pending (due at 1600) Plan: Due to unstable srcr, will continue to dose by random level. Random vancomycin level ordered for today at 1600. Will review the level when available & dose if needed. Will continue to monitor.
--- NOTE | 2017-07-24 15:55 | NUR ---
Patient was discharged with orders from MD to [facility]. Report given to Odalys. Patient was noted to be non-verbal, refused medications and refused to eat. Patient kept trying to remove IV site. Patient was in no apparent s/s of pain, distress, discomfort or distress. IV and ID band removed. Patient was picked up by two EMT's that transport the patient via [facility] to the SNF. VS stable
[2017-07-24] MEDS ORDERED: POTASSIUM CHLORIDE 10 MEQ in IV NORMAL SALINE 50 ML IV SCH (17:00)
== END 2017-07-24 16:00 | DRG 871 ==
LOC: ER 16:30 → TELE 21:50 → MED 07-21 14:15
PROVIDERS: ADMIT Internal Medicine; ATTEND Internal Medicine
DX: A41.9 Sepsis, unspecified organism (principal); J18.9 Pneumonia, unspecified organism; N17.0 Acute kidney failure with tubular necrosis; J96.01 Acute respiratory failure with hypoxia; E87.0 Hyperosmolality and hypernatremia; I13.0 Hypertensive heart and chronic kidney disease with heart failure and stage 1 through stage 4 chronic kidney disease, or unspecified chronic kidney disease; G30.9 Alzheimer's disease, unspecified; J44.0 Chronic obstructive pulmonary disease with (acute) lower respiratory infection; I50.9 Heart failure, unspecified; F02.80 Dementia in other diseases classified elsewhere, unspecified severity, without behavioral disturbance, psychotic disturbance, mood disturbance, and anxiety; B37.49 Other urogenital candidiasis; R64 Cachexia; J44.1 Chronic obstructive pulmonary disease with (acute) exacerbation; R65.20 Severe sepsis without septic shock; R62.7 Adult failure to thrive; Z66 Do not resuscitate; Z79.82 Long term (current) use of aspirin; Y95 Nosocomial condition; N18.9 Chronic kidney disease, unspecified; I70.0 Atherosclerosis of aorta; E86.9 Volume depletion, unspecified; R73.9 Hyperglycemia, unspecified
CPT/HCPCS: 36415; 70030-TC; 71045; 83605; 83735; 84100; 85025; 87040; 87086; 87400; 93005; A4663; C1758; J0692; J0696; J1450; J1940; J2543; J2930; J3370; J3480; J3490; J7050; J7060; J7070; J7512